=== PATIENT | female | born 1935 | race Caucasian/White ===

== ENCOUNTER → 2017-08-29 | Outpatient (CLI) | payer OTHER ==
[~2017-08-29] MED LIST: GADOBUTROL 10 ML VIAL IVP ONE
== END ==
LOC: FIMAGING 14:43
PROVIDERS: ATTEND Psychiatry & Neurology Neurology
DX: R41.3 Other amnesia (principal); M51.34 Other intervertebral disc degeneration, thoracic region; M46.94 Unspecified inflammatory spondylopathy, thoracic region; M46.95 Unspecified inflammatory spondylopathy, thoracolumbar region; M40.204 Unspecified kyphosis, thoracic region
CPT/HCPCS: 70553; 72157; A9585